=== PATIENT | male | born 1985 | race Caucasian/White ===

== ENCOUNTER 2016-08-24 11:40 | Emergency (ER) | payer SELFPAY ==
[~2016-08-24] VITALS: Ht 172.7 cm; Wt 63.5 kg
[2016-08-24 11:55] VITALS: BP 111/77
--- NOTE | 2016-08-24 13:27 | NUR ---
Patient to bed 03.
--- NOTE | 2016-08-24 13:39 | NUR ---
Dr. Nayak evaluating patient at bedside.
--- NOTE | 2016-08-24 13:40 | NUR ---
PT PRESENTS TO ER W/C/O RIGHT ARM PAIN X1 DAY. PT STATES HE FELL WHILE SKATEBOARDING YESTERDAY, LANDING ON HIS RIGHT ARM. PT DENIES ANY OTHER MEDICAL HX; DENIES N/V/D; SKIN IS PINK/WARM/DRY; AAOX4 WITH EVEN AND STEADY GAIT; LUNGS CLEAR BL; HR EVEN AND REGULAR; PT DENIES ANY FEVER, CP, SOB, OR COUGH AT THIS TIME; PATIENT STATES RIGHT ELBOW/ARM PAIN OF 9/10 AT THIS TIME; VSS; PATIENT POSITIONED FOR COMFORT; HOB ELEVATED; BEDRAILS UP X2; BED DOWN. ER MD MADE AWARE OF PT STATUS.
[2016-08-24] MEDS ORDERED: KETOROLAC 60 MG/2 ML VIAL IM ONE (13:45)
[2016-08-24 14:16] VITALS: BP 108/71
--- NOTE | 2016-08-24 14:16 | NUR ---
Patient discharged with v/s stable. Written and verbal after care instructions given and explained. Patient alert, oriented and verbalized understanding of instructions. Ambulatory with steady gait. All questions addressed prior to discharge. ID band removed. Patient advised to follow up with PMD. Rx of TYLENOL, MOTRIN given. Patient educated on indication of medication including possible reaction and side effects. Opportunity to ask questions provided and answered.
== END 2016-08-24 14:16 | disposition home or self-care (01) ==
LOC: MED 11:40
DX: S52.131A Displaced fracture of neck of right radius, initial encounter for closed fracture (principal); W18.39XA Other fall on same level, initial encounter; Y93.51 Activity, roller skating (inline) and skateboarding; Y92.39 Other specified sports and athletic area as the place of occurrence of the external cause; Y99.8 Other external cause status
CPT/HCPCS: 29105; 73080; 73090; 96372; 99284; J1885